=== PATIENT | male | born 1980 | race Caucasian/White ===

== ENCOUNTER 2016-09-15 17:23 | Day surgery (SDC) | payer BC ==
[~2016-09-15] VITALS: Ht 185.4 cm; Wt 107.7 kg
--- NOTE | ~2016-09-15 | OR ---
PATIENT'S NAME: RYAN MAHAJAN [facility] AGE: 35 Y [address] ROOM: [address] [address] LOCATION: [facility] ADMIT DATE: 09/15/2016 OR/Procedure Report DISCHARGE DATE: FAMILY PHYSICIAN: ePyton Honeycutt APRN ATTENDING PHYSICIAN: Bill SARAVIA SURGEON: Bill Saravia MD COMPRESSED GAS TESTER: DATE OF PROCEDURE: 09/15/2016 PREOPERATIVE DIAGNOSIS: Acute appendicitis. POSTOPERATIVE DIAGNOSIS: Acute appendicitis. PROCEDURE PERFORMED: Laparoscopic appendectomy. COUNTS: Sponge and needle count at the end of the case was correct. COMPLICATIONS: None. SPECIMENS: Appendix. DESCRIPTION OF PROCEDURE: After informed consent was obtained, the patient was taken to the operating room and intubated. A River catheter was placed. His anterior abdominal wall was sterilely prepped and draped. Surgical time- out was performed. Local anesthetic was administered to the dermis just below the umbilicus in the midline through a stab incision. A Veress needle was used to create pneumoperitoneum. A 5 mm trocar was passed through this incision. No injury to subjacent bowel or other structures was identified. A 5 mm suprapubic port and an 11 mm left lower quadrant port were placed under camera visualization. The patient was placed into Trendelenburg position with the table air planed to the left. Small bowel was gently manipulated out of the way to allow for exposure. Inflamed appendix was identified. There was no evidence of perforation. There was no free fluid. The mesoappendix was thickened. It was divided with Harmonic Scalpel towards the base of the appendix. The base of the appendix appeared normal. There was no injury created to the cecum or terminal ileum. Endo-loops x2 were placed over the base of the appendix and pushed into place. The appendix was divided and extracted through an 11 mm port through an EndoCatch bag. On visualization of the right lower quadrant and operative bed, there was no untoward bleeding or evidence of iatrogenic injury. The abdomen was desufflated. The ports were removed. The fascia of the 11 mm port was closed with interrupted 0 Vicryl suture. All skin incisions were closed with 4-0 Monocryl and Dermabond. The patient was extubated in the operating room, the River catheter was removed, and the patient was taken to the post anesthesia care unit in stable condition. PATIENT'S NAME: RYAN MAHAJAN [facility] AGE: 35 Y [address] ROOM: [address] [address] LOCATION: [facility] ADMIT DATE: 09/15/2016 OR/Procedure Report DISCHARGE DATE: FAMILY PHYSICIAN: Peyton Honeycutt APRN ATTENDING PHYSICIAN: Bill SARAVIA BILLDanie SARAVIA MD CM/maulik /[id number] d: 09/15/16 2135 t: 09/16/16 1148, OPERATIVE SUMMARY
--- NOTE | ~2016-09-15 | ENPV ---
Vascular Lower Extremities DVT Study Procedure Demographics Patient Name RYAN MAHAJAN Date of Study 09/15/2016 Patient Number [id number] Gender Male Date of 1980 Age 35 Visit Number [id number] Height Accession Number [id number] Weight Room Number G3306 BSA BMI Referring [place] Peyton Toussaint MD Physician Physician Physician Ordering Physician Patient Support Specialist Social And Political Studies Professor Payton Ospina [facility], [facility] Conclusions Summary No evidence of deep vein thrombosis or superficial thrombophlebitis in the lower extremities bilaterally . Procedure Type of Study: Veins:Lower Extremities DVT Study, Venous Duplex Lower Extremity Bilateral. Additional Indications:ORDERD BY LUIZA BULLOCK LEG PAIN POST OP Patient Status:STAT. Study Location:Inpatient Portable. Technical Quality:Good visualization. Contrast Medium Amount:7 ml. Velocities are measured in cm/s ; Diameters are measured in cm Right Lower Extremities DVT Study Measurements Right 2D and Doppler Measurements + + + + +------+------+ + !Location !Visualized!Compressibility!Thrombosis!Signal!Reflux!Reflux ! ! ! ! ! ! ! !(sec) ! + + + + +------+------+ + !GSV Thigh !Yes !Yes !None !Phasic!No ! ! + + + + +------+------+ + !Common !Yes !Yes !None !Phasic!No ! ! !Femoral ! ! ! ! ! ! ! + + + + +------+------+ + !Prox !Yes !Yes !None !Phasic!No ! ! !Femoral ! ! ! ! ! ! ! + + + + +------+------+ + !Mid Femoral!Yes !Yes !None !Phasic!No ! ! + + + + +------+------+ + !Dist !Yes !Yes !None !Phasic!No ! ! !Femoral ! ! ! ! ! ! ! + + + + +------+------+ + !Popliteal !Yes !Yes !None !Phasic!No ! ! + + + + +------+------+ + !Gastroc !Yes !Yes !None !Phasic!No ! ! + + + + +------+------+ + !PTV !Yes !Yes !None !Phasic!No ! ! + + + + +------+------+ + !Peroneal !Yes !Yes !None !Phasic!No ! ! + + + + +------+------+ + Left Lower Extremities DVT Study Measurements Left 2D and Doppler Measurements + + + + +------+------+ + !Location !Visualized!Compressibility!Thrombosis!Signal!Reflux!Reflux ! ! ! ! ! ! ! !(sec) ! + + + + +------+------+ + !GSV Thigh !Yes !Yes !None !Phasic!No ! ! + + + + +------+------+ + !Common !Yes !Yes !None !Phasic!No ! ! !Femoral ! ! ! ! ! ! ! + + + + +------+------+ + !Prox !Yes !Yes !None !Phasic!No ! ! !Femoral ! ! ! ! ! ! ! + + + + +------+------+ + !Mid Femoral!Yes !Yes !None !Phasic!No ! ! + + + + +------+------+ + !Dist !Yes !Yes !None !Phasic!No ! ! !Femoral ! ! ! ! ! ! ! + + + + +------+------+ + !Popliteal !Yes !Yes !None !Phasic!No ! ! + + + + +------+------+ + !Gastroc !Yes !Yes !None !Phasic!No ! ! + + + + +------+------+ + !PTV !Yes !Yes !None !Phasic!No ! ! + + + + +------+------+ + !Peroneal !Yes !Yes !None !Phasic!No ! ! + + + + +------+------+ + Impressions Right Impression No DVT seen Left Impression No DVT seen Signature dtt: BONG AVALOS dtd: 09/15/162051 Physician Self Edmoni
--- NOTE | 2016-09-16 04:13 | NUR ---
Significant Event: Arrived to unit at 2030 from PACU. A&Ox3, VSS on room air. Lap sites X3 with skin glue open to air. No drainage from sites. Bowl sounds hypoactive. Patient is up ad-kole to bathroom. Voiding with out difficulty. Good output. Tolerating PO. Motrin for pain Q6hrs. Patient refuses other pain options. Plesant and cooperative with cares. Observation, patient to D/C to home today. Follow up:
--- NOTE | 2016-09-16 11:29 | NUR ---
Patient was AOx3. VSS. Up adlib in room. Lap sites dry and intact. Patient taking PO good. Motrin for pain. Patient had no questions about discharge instructions. Patient was walked to ER doors where patient was dismissed home with at 1130.
== END 2016-09-16 11:30 | disposition disaster alternative care site (69) ==
LOC: GSDC 17:23 → G3N 17:23 → GSDC 09-16 11:30
PROC: 0DTJ4ZZ Resection of Appendix, Percutaneous Endoscopic Approach (ICD-10-PCS; principal; 2016-09-15)
DX: K35.80 Unspecified acute appendicitis (principal); M79.606 Pain in leg, unspecified; Z98.52 Vasectomy status; Z98.890 Other specified postprocedural states
CPT/HCPCS: J2543; J3010